=== PATIENT | female | born 1955 | race Caucasian/White ===

== ENCOUNTER 2021-09-15 10:08 | Day surgery (SDC) | payer OTHER, MEDICAID, SELFPAY ==
[~2021-09-15] VITALS: Ht 154.9 cm; Wt 62.6 kg
[2021-09-15] MEDS ORDERED: ARTICAINE HCL/EPINEPHRINE 4%/1:200,000 BIT 1.7 ML CARTRIDGE IJ ONE (14:45)
[2021-09-15] MEDS ORDERED: NS IRRIG SOLN 1000 ML IR ONE (14:45)
[2021-09-15] MEDS ORDERED: NS 250 ML BAG IV ONE (14:45)
[2021-09-15 14:57] VITALS: BP_SYST 121
== END 2021-09-15 13:50 | disposition home or self-care (01) ==
LOC: SDS 10:08
PROVIDERS: ATTEND Dentist General Practice
DX: M27.2 Inflammatory conditions of jaws (principal); K05.6 Periodontal disease, unspecified; M89.8X0 Other specified disorders of bone, multiple sites; M26.603 Bilateral temporomandibular joint disorder, unspecified; K05.223 Aggressive periodontitis, generalized, severe; K12.2 Cellulitis and abscess of mouth; K08.421 Partial loss of teeth due to periodontal diseases, class I; M17.0 Bilateral primary osteoarthritis of knee; E11.9 Type 2 diabetes mellitus without complications; G47.33 Obstructive sleep apnea (adult) (pediatric); Z79.899 Other long term (current) drug therapy; Z20.822 Contact with and (suspected) exposure to COVID-19
CPT/HCPCS: 21026; 21215; 21248; 36415; 70140; 87426; C1713 ×2; J7050